=== PATIENT | female | born 1990 | race Caucasian/White ===

== ENCOUNTER 2017-12-15 19:46 | Emergency (ER) | payer OTHER ==
[~2017-12-15] VITALS: Ht 165.1 cm; Wt 61.7 kg
[2017-12-15 20:08] VITALS: Ht 165.1 cm; Wt 61.7 kg
[2017-12-15 23:51] VITALS: BP 144/96
== END 2017-12-15 23:51 | disposition home or self-care (01) ==
LOC: ED 19:46
DX: S06.0X1A Concussion with loss of consciousness of 30 minutes or less, initial encounter (principal); S13.4XXA Sprain of ligaments of cervical spine, initial encounter; S63.501A Unspecified sprain of right wrist, initial encounter; S40.212A Abrasion of left shoulder, initial encounter; S80.211A Abrasion, right knee, initial encounter; S00.81XA Abrasion of other part of head, initial encounter; R68.84 Jaw pain; V87.8XXA Person injured in other specified noncollision transport accidents involving motor vehicle (traffic), initial encounter; Y93.89 Activity, other specified; Y99.8 Other external cause status; Y92.89 Other specified places as the place of occurrence of the external cause
CPT/HCPCS: 90715; Q0162